=== PATIENT | male | born 1960 | race Caucasian/White ===

== ENCOUNTER 2018-01-22 21:27 | Emergency (ER) | payer SELFPAY ==
[2018-01-22] MEDS ORDERED: CLINDAMYCIN 150 MG CAP PO ONE (21:54)
--- NOTE | 2018-01-22 21:54 | Emergency Department Record ---
History of Present Illness - General Chief complaint: Rash Stated complaint: STAFF INFECTION BOTH ARMS Time Seen by Provider: 01/22/18 21:52 Source: Patient Mode of Arrival: Ambulatory Limitations: No limitations - History of Present Illness Initial comments: 57 yo male presents to ED for evaluation of a weeping rash to the left upper extremity. Patient reports that he was treated for cellulitis 1 months ago with Bactrim and ? Keflex for 10 days, symptoms significantly improved, but returned over the past 24 hours. Patient denies fevers, chills, or recent illness. Patient denies health problems at his baseline. MD complaint: Rash Onset/Timin -: Month(s) Hx Tetanus Toxoid Vaccination: Yes Year of Tetanus Vaccination: 2013 Location: [facility] [place] Severity: Moderate Quality: Other Improves with: Medication Context: None Associated symptoms: Denies other symptoms Treatments Prior to Arrival: None - Related Data Previous Rx's Medication Instructions Recorded Clindamycin HCl 300 mg PO QID #40 capsule 01/22/18 Allergies Allergy/AdvReac Type Severity Reaction Status Date / Time Penicillins Allergy Unknown unknow Unverified 12/18/17 13:12 Travel Screening - Travel/Exposure Within Last 30 Days Have you traveled within the last 30 days?: No - Travel Symptoms Symptom Screening: Rash Review of Systems Constitutional: Denies: Chills, Fever, Malaise, Night sweats Eyes: Denies: Eye discharge, Eye pain ENT: Denies: Congestion, Ear pain, Epistaxis Respiratory: Denies: Cough, Dyspnea Cardiovascular: Denies: Chest pain, Dyspnea on exertion Endocrine: Denies: Fatigue, Heat or cold intolerance Gastrointestinal: Denies: Abdominal pain, Constipation, Vomiting Genitourinary: Denies: Incontinence, Retention Musculoskeletal: Denies: Arthralgia, Back pain, Gout, Joint swelling Skin: Reports: Rash. Denies: Bruising, Change in color Neurological: Denies: Abnormal gait, Confusion, Headache, Seizure Psychiatric: Denies: Anxiety Hematological/Lymphatic: Denies: Anemia, Blood Clots Past Medical History - SOCIAL HISTORY Smoking Status: Never smoker Alcohol Use: Rare Drug Use: Heavy Drug Use Detail:: Marijuana - RESPIRATORY Hx Respiratory Disorders: No - CARDIOVASCULAR Hx Cardio Disorders: No - NEURO Hx Neuro Disorders: No - GI Hx GI Disorders: No - Hx Genitourinary Disorders: No - ENDOCRINE Hx Endocrine Disorders: No - MUSCULOSKELETAL Hx Musculoskeletal Disorders: No - PSYCH Hx Psych Problems: No - HEMATOLOGY/ONCOLOGY Hx Hematology/Oncology Disorders: No Family Medical History Any Significant Family History?: No Family Hx Comment (NOT TO BE USED IN PLACE OF ITEMS BELOW): denies Physical Exam - General General Appearance: Alert, Oriented x3, Cooperative, Mild distress Limitations: No limitations - Head Head exam: Atraumatic, Normocephalic, Normal inspection Head exam detail: negative: Abrasion, Contusion, Barker's sign, General tenderness, Hematoma, Laceration - Eye Eye exam: Normal appearance. negative: Conjunctival injection, Periorbital swelling, Periorbital tenderness, Scleral icterus - ENT Ear exam: negative: Auricular hematoma, Auricular trauma Nasal Exam: negative: Active bleeding, Discharge, Dried blood, Foreign body Mouth exam: negative: Drooling, Laceration, Muffled voice, Tongue elevation - Neck Neck exam: Normal inspection. negative: Meningismus, Tenderness - Respiratory Respiratory exam: Normal lung sounds bilaterally. negative: Rales, Respiratory distress, Rhonchi, Stridor - Cardiovascular Cardiovascular Exam: Regular rate, Normal rhythm, Normal heart sounds Peripheral Pulses: 3+: Radial (L) - GI/Abdominal GI/Abdominal exam: Soft. negative: Rebound, Rigid, Tenderness - Rectal Rectal exam: Deferred - exam: Deferred - Extremities Extremities exam: Other (Erythematous rash to the medial upper arm extending past the anticubital region to the mid-foream volarly, honey-colored crust is present to the area as well. No crepitation on examination.). negative: Calf tenderness, Pedal edema - Back Back exam: Denies: CVA tenderness (R), CVA tenderness (L) - Neurological Neurological exam: Alert, Normal gait, Oriented X3 - Psychiatric Psychiatric exam: Normal affect, Normal mood - Skin Skin exam: Normal color. negative: Abrasion Type of lesion: negative: abrasion Course Vital Signs 01/22/18 21:40 Temperature 97.8 F Pulse Rate [ 67 Pulse Ox Probe] Respiratory 20 Rate Blood Pressure 153/99 [Left Arm] Pulse Ox 96 - Reevaluation(s) Reevaluation #1: 01/22/18 22:00 History and examination appears c/w impetigo/strep to the left upper extremity. Will initiate treatment with Clindamycin with instructions to return if symptoms worsen, but also be reassessed by Dr. Sanchez in 3-5 days to ensure that his symptoms are improving. Patient agrees with the plan of care as discussed. Disposition Disposition: Discharge Clinical Impression: Cellulitis of upper extremity Qualifiers: Laterality: left Qualified Code(s): L03.114 - Cellulitis of left upper limb Disposition: Home, Self-Care Condition: (2) Stable Instructions: Impetigo (ED), Cellulitis (ED) Additional Instructions: Return to ED if your symptoms worsen or if you have any concerns. Clindamycin as directed. Follow-up with Dr. Sanchez in 3-5 days as directed. Prescriptions: Clindamycin HCl 300 mg PO QID #40 capsule Forms: Patient Portal Access Time of Disposition: 21:54 Quality - Quality Measures Quality Measures: N/A - Blood Pressure Screening Does Patient Have Any of the Following: No Blood Pressure Classification: Hypertensive Reading Systolic Measurement: 153 Diastolic Measurement: 99 Screening for High Blood Pressure: < First Hypertensive BP, F/U Documented > [ G8950] First Hypertensive Follow-up Interventions: Referral to alternative/primary care provider.
== END 2018-01-22 22:00 | disposition home or self-care (01) ==
LOC: ER 21:27
DX: L03.114 Cellulitis of left upper limb (principal)
CPT/HCPCS: 99282

== ENCOUNTER 2018-01-24 02:11 | Observation (INO) | payer SELFPAY ==
[2018-01-24] MEDS ORDERED: CLINDAMYCIN 600MG/50ML PREMIX 600 MG/50 ML BAG IVPB ONE (02:26)
--- NOTE | 2018-01-24 02:33 | Emergency Department Record ---
History of Present Illness - General Chief complaint: Rash Stated complaint: RASH Time Seen by Provider: 01/24/18 02:26 Source: Patient Mode of Arrival: Ambulatory Limitations: No limitations - History of Present Illness Initial comments: 57 yo male returns to ED for evaluation of worsening erythema and weeping of the LUE, worsening of symptoms to the right UE. Patient reports that he applied hydrogen peroxide to the affected area. Patient reports that his symptoms had initially improved but then worsened this evening increasing in both size and edema. Patient denies fevers, chills, or recent illness. MD complaint: Rash Onset/Timin -: Minutes(s) Hx Tetanus Toxoid Vaccination: Yes Year of Tetanus Vaccination: 2013 Location: [facility] Severity scale (1-10): 6 Quality: Burning Consistency: Constant Improves with: Topical medication Worsens with: None Context: None Associated symptoms: Itching Treatments Prior to Arrival: OTC topical medication - Related Data Previous Rx's Medication Instructions Recorded Clindamycin HCl 300 mg PO QID #40 capsule 01/22/18 Allergies Allergy/AdvReac Type Severity Reaction Status Date / Time Penicillins Allergy Unknown unknow Verified 01/24/18 02:13 Travel Screening - Travel/Exposure Within Last 30 Days Have you traveled within the last 30 days?: No - Travel Symptoms Symptom Screening: None Review of Systems Constitutional: Denies: Chills, Fever, Malaise, Night sweats Eyes: Denies: Eye discharge, Eye pain ENT: Denies: Congestion, Ear pain, Epistaxis Respiratory: Denies: Cough, Dyspnea Cardiovascular: Denies: Chest pain, Dyspnea on exertion Endocrine: Denies: Fatigue, Heat or cold intolerance Gastrointestinal: Denies: Abdominal pain, Nausea, Vomiting Genitourinary: Denies: Incontinence, Retention Musculoskeletal: Denies: Arthralgia, Back pain, Gout, Joint swelling Skin: Reports: Pruritus, Rash. Denies: Bruising, Change in color Neurological: Denies: Confusion, Headache, Seizure Psychiatric: Denies: Anxiety Hematological/Lymphatic: Denies: Anemia, Blood Clots Past Medical History - SOCIAL HISTORY Smoking Status: Never smoker - RESPIRATORY Hx Respiratory Disorders: No - CARDIOVASCULAR Hx Cardio Disorders: No - NEURO Hx Neuro Disorders: No - GI Hx GI Disorders: No - Hx Genitourinary Disorders: No - ENDOCRINE Hx Endocrine Disorders: No - MUSCULOSKELETAL Hx Musculoskeletal Disorders: No - PSYCH Hx Psych Problems: No - HEMATOLOGY/ONCOLOGY Hx Hematology/Oncology Disorders: No Family Medical History Any Significant Family History?: No Family Hx Comment (NOT TO BE USED IN PLACE OF ITEMS BELOW): unknown hx Physical Exam - General General Appearance: Alert, Oriented x3, Cooperative, Mild distress Limitations: No limitations - Head Head exam: Atraumatic, Normocephalic, Normal inspection Head exam detail: negative: Abrasion, Contusion, Barker's sign, General tenderness, Hematoma, Laceration - Eye Eye exam: Normal appearance. negative: Conjunctival injection, Periorbital swelling, Periorbital tenderness, Scleral icterus - ENT Ear exam: negative: Auricular hematoma, Auricular trauma Nasal Exam: negative: Active bleeding, Discharge, Dried blood, Foreign body Mouth exam: negative: Drooling, Laceration, Muffled voice, Tongue elevation - Neck Neck exam: Normal inspection. negative: Meningismus, Tenderness - Respiratory Respiratory exam: Normal lung sounds bilaterally. negative: Rales, Respiratory distress, Rhonchi, Stridor - Cardiovascular Cardiovascular Exam: Regular rate, Normal rhythm, Normal heart sounds - GI/Abdominal GI/Abdominal exam: Soft. negative: Rebound, Rigid, Tenderness - Rectal Rectal exam: Deferred - exam: Deferred - Extremities Extremities exam: Other (Confluent erythema extending from the mid-upper arm medially to the mid-forearm with weeping fluid present, patient removed the previlsy seen honey-colored crust resulting in increased drainage from extremity. Patient also has an area now to the right anticubital region with honey-colored crust present.). negative: Calf tenderness, Pedal edema, Tenderness - Back Back exam: Denies: CVA tenderness (R), CVA tenderness (L) - Neurological Neurological exam: Alert, Normal gait, Oriented X3 - Psychiatric Psychiatric exam: Normal affect, Normal mood - Skin Skin exam: Erythema. negative: Abrasion Type of lesion: Rash Distribution of rash: [place] Description of rash: Confluent Course Vital Signs 01/24/18 02:15 Temperature 97.5 F L Pulse Rate [ 90 Pulse Ox Probe] Respiratory 20 Rate Blood Pressure 149/113 [Right Arm] Pulse Ox 99 - Reevaluation(s) Reevaluation #1: 01/24/18 02:33 Laboratory studies were ordered, Clindamycin and Vancomycin ordered IV. No crepitation is present, compartments are soft on examination. Will obtain radiograph to exclude soft-tissue gas and plan for admission. Reevaluation #2: 01/24/18 03:00 Laboratory studies were reviewed and appear grossly unremarkable for an acute process. Reevaluation #3: 01/24/18 03:23 Left elbow: Negative for fracture or dislocation Non-specific soft tissue swelling ? intra-articular loose bodies Patient was updated on all results and agrees with the plan for admission for further evaluation. Medical Decision Making - Lab Data Result diagrams: 01/24/18 02:30 01/24/18 02:30 Disposition Disposition: Admit Clinical Impression: Dermatitis, Impetigo Disposition: Still a Patient at [facility] Decision to Admit: Admit from ER Decision to Admit Date: 01/24/18 Decision to Admit Time: 02:52 Condition: (2) Stable Forms: Patient Portal Access Time of Disposition: 02:35 Quality - Quality Measures Quality Measures: N/A - Blood Pressure Screening Does Patient Have Any of the Following: No Blood Pressure Classification: Hypertensive Reading Systolic Measurement: 149 Diastolic Measurement: 113 Screening for High Blood Pressure: < First Hypertensive BP, F/U Documented > [ G8950] First Hypertensive Follow-up Interventions: Referral to alternative/primary care provider.
[2018-01-24 02:44] LABS: BASO % 0.6 % (0-6); GRAN % 66.3 % (47-80); HEMATOCRIT 48.7 % (42.0-52.0); HEMOGLOBIN 16.9 gm/dl (14.0-18.0); LYMPH % 19.8 % (16-45); MEAN CORPUSCULAR HEMOGLOBIN 30.2 pg (27-33); MEAN CORPUSCULAR HGB CONC 34.7 g/dl (32-36); MEAN PLATELET VOLUME 10.6 fl (7.4-10.4); MONO % 8.3 % (0-9); PLATELET COUNT 248 K/uL (130-400); RED CELL DISTRIBUTION WIDTH 13.6 % (11.5-14.5); WHITE BLOOD COUNT W/O DIFF 8.7 K/uL (4.2-12.2)
[2018-01-24] MEDS ORDERED: VANCOMYCIN HCL 2,000 MG in 0.9 % SODIUM CHLORIDE 250ML 250 ML IVPB ONE (02:49)
[2018-01-24 02:53] LABS: BLOOD UREA NITROGEN 16 mg/dL (6-20); CREATININE 0.8 mg/dL (0.7-1.2); EST GLOMERULAR FILTRATION RATE > 60 mL/min
[2018-01-24 02:54] LABS: TOTAL PROTEIN 7.5 g/dL (6.6-8.7)
[2018-01-24 02:56] LABS: GLUCOSE,RANDOM 116 mg/dL (74-109)
[2018-01-24 02:58] LABS: ALB/GLOB RATIO 1.6 (1.1-1.8); ALBUMIN 4.6 g/dL (4.0-5.0); ALKALINE PHOSPHATASE 91 U/L (40-129); ALT/SGPT 21 U/L (<41); AST/SGOT 20 U/L (10.0-50.0); C-REACTIVE PROTEIN 0.43 mg/dL (<0.5)
[2018-01-24] MEDS ORDERED: VANCOMYCIN HCL 2,000 MG in 0.9 % SODIUM CHLORIDE 250ML 250 ML IVPB SCH (03:46)
[2018-01-24 03:51] LABS: ERYTHROCYTE SEDIMENTATION RATE 2 mm/hr (0-20)
[2018-01-24] MEDS ORDERED: HYDROCORTISONE 1% CREAM 28.35 GM TUBE TOP PRN (08:04)
[2018-01-24] MEDS: METHYLPREDNISOLONE PF 125MG/VIAL IVP ONE ×3 (08:38→16:45)
[2018-01-24] MEDS: DIPHENHYDRAMINE HCL 25 MG CAPSULE PO PRN ×2 (08:38→16:34)
[2018-01-24] MEDS ORDERED: CLINDAMYCIN 600MG/50ML PREMIX 600 MG/50 ML BAG IVPB SCH (10:30)
[2018-01-24] MEDS ORDERED: VANCOMYCIN HCL 2,000 MG in 0.9 % SODIUM CHLORIDE 500ML 500 ML IVPB SCH (11:00)
--- NOTE | 2018-01-24 11:08 | RADIOLOGY REPORT ---
EXAM: LEFT ELBOW HISTORY: WOUND DRAINAGE, ERYTHEMA, POSSIBLE SOFT TISSUE AIR. TECHNIQUE: Three views of the left elbow were obtained. A preliminary report was provided by [facility]. Comparison: None. FINDINGS: There is some soft tissue swelling along the radial aspect of the elbow in particular. On the lateral views there is a relative soft tissue defect along the anterior aspect of the antecubital fossa which may just be artifactual related to some external binding, but clinical correlation is suggested. There is mild spurring about the elbow consistent with mild degenerative arthritis and there is questionably at least one small calcific density centrally in the elbow which could be a small osteocartilaginous loose body. No definite displacement of the fat pads about the distal humerus seen to suggest a joint effusion, however. No fracture or destructive lesion seen. No definite air identified in the soft tissues themselves. IMPRESSION: 1. SOFT TISSUE SWELLING PARTICULARLY ALONG THE RADIAL ASPECT OF THE ELBOW. RELATIVE SOFT TISSUE DEFECT ANTERIORLY IN THE SUPERFICIAL ASPECT OF THE ANTECUBITAL FOSSA IS QUESTIONABLY JUST AN ARTIFACT RELATED TO SOME OVERLYING BINDING, BUT CLINICAL CORRELATION TO A LARGE ULCERATED SOFT TISSUE DEFECT IN THIS LOCATION IS SUGGESTED. 2. SOME MILD DEGENERATIVE CHANGES AT THE ELBOW WITH POSSIBLY A SMALL OSTEOCARTILAGINOUS LOOSE BODY. JOB NUMBER: [id number] [facility]
[2018-01-24] MEDS ORDERED: METHYLPREDNISOLONE SOD 40MG/VIAL IVP ONE (15:14)
--- NOTE | 2018-01-24 15:22 | Discharge Note ---
VTE H&P Assessment - Risk for VTE Risk for VTE: Yes Risk Level: Moderate Risk Assessment Date: 01/24/18 Risk Assessment Time: 08:00 VTE Orders Placed or Will Be Placed: Yes Discharge Medications - Discharge Medications Prescriptions: Prednisone [Prednisone 10Mg] 10 mg PO ASDIR #30 tab Home Medications: Ambulatory Orders Clindamycin HCl 300 mg PO QID #40 capsule 01/22/18 [Last Taken 01/23/18] Prednisone [Prednisone 10Mg] 10 mg PO ASDIR #30 tab 01/24/18 [Last Taken Unknown ] Discharge Note - Date Date of Discharge Note: 01/24/18 Disposition: Home, Self-Care Condition: (1) Good Additional Instructions: follow up with Dr. Sanchez on monday 9:00am in the office, Please tell him my office is in the new building behind the hospital. wash arms with soap and water once or twice a day cover with guaze if wheeping use hydrocrtisone cream twice a day please dispense the tube he is using in the hospital use eurcin crean or jasvir mosturizing cream hypoallergic PRN Forms: Patient Portal Access Activity at Discharge: Increase Activity as Tolerated
[2018-01-24] MEDS ORDERED: SODIUM CHLORIDE 0.9% IVPB SCH (21:00)
[2018-01-24] MEDS ORDERED: VANCOMYCIN HCL IVPB SCH (21:00)
--- NOTE | 2018-01-26 08:30 | History and Physical Report ---
DATE: 01/24/2018 at 9 a.m. CHIEF COMPLAINT: Rash bilaterally. HISTORY OF PRESENT ILLNESS: This 57-year-old male presented to the emergency department with rash on both arms, worse on the left than the right, oozing. Started about 4 months ago is what the patient said but in the last 2 weeks it has been much worse. He was seen at the [facility] approximately a month ago, started on Bactrim and Keflex for 10 days. He improved but it did not go totally away. He came into the ER on 01/22/2018, diagnosed with cellulitis, started on clindamycin. He got worse. He came back to the ER last night. Started on vancomycin and clindamycin IV, admitted to the hospital for IV antibiotics. The rash on the left arm is oozing, red, and acute on chronic inflammation. The right arm looks chronic rash of possibly some immunologic dermatitis. The patient was admitted during the night by Dr. Katz through the emergency department. PAST MEDICAL HISTORY: Negative. PAST SURGICAL HISTORY: T&A and knee scope. MEDICATIONS: None except the clindamycin that was started in the emergency department on 01/22/2018 at 300 mg q.i.d. ALLERGIES: PENICILLIN. FAMILY/PSYCHOSOCIAL HISTORY: Family history unremarkable. Occasional alcohol use. Heavy marijuana use. Never uses cigarettes. REVIEW OF SYSTEMS: HEENT: No upper respiratory infection symptoms, cough, cold, or congestion. Cardiovascular: No chest pain, palpitations, or arrhythmia. Respiratory: No cough, cold, or congestion. Gastrointestinal: No nausea, vomiting, diarrhea, black stools, or bloody stools. No appetite loss. He is eating appropriately. Genitourinary: No dysuria, hematuria, frequency, or burning on urination. Musculoskeletal: No joint or bone abnormalities. Neurological: No CVA, paralysis, or paresthesias. Endocrine: No diabetes or thyroid disease. Integument: See Chief Complaint. He has bilateral redness of both axillary areas of the arms. The left is way worse than the right, oozing, it is very itchy, he is constantly itching when I was talking to him. PHYSICAL EXAMINATION: VITALS: Height 6 feet 2 inches, weight 235 pounds stated, 245 pounds on a standing scale. Temperature 98.1, pulse 62, blood pressure 137/80, respiratory rate 18, pulse ox 97% on room air. HEENT: Pupils are equal, round, and reactive to light and accommodation. Extraocular muscles are intact. Throat is clear. Nose is clear. Tympanic membranes are murry. NECK: Supple. No jugular venous distention. No hepatojugular reflux. No carotid bruits. Thyroid is smooth. CARDIOVASCULAR: Regular rate and rhythm without murmurs, clicks, rubs, or gallops. RESPIRATORY: Clear to auscultation and percussion. ABDOMEN: Soft, nontender. No hepatosplenomegaly, no masses, no tenderness. Bowel sounds are active. No bruits. EXTREMITIES: There is rash on both arms. Right is less than the left. Oozing on the left, axillary area about 5 x 4 cm. BREASTS: Normal male breasts. RECTAL: Exam deferred. GENITALIA: Deferred. NEUROLOGIC: Cranial nerves II-XII intact. No gross defects. Sensation normal, strength normal. Deep tendon reflexes equal bilaterally with Babinski negative. MENTAL STATUS: Alert and oriented x3. IMPRESSION: 1. Cellulitis of both arms. 2. Possible allergic dermatitis versus psoriasis with inflammation. PLAN: IV Solu-Medrol 125. Continue the antibiotics. Further evaluation. MTDD
--- NOTE | 2018-01-29 09:34 | Discharge Summary ---
DATE: 01/24/2018 This is an observation patient. DISCHARGE DIAGNOSES: 1. Cellulitis. 2. Acute allergic dermatitis. 3. Possible psoriasis exacerbation. ATTENDING PHYSICIAN: Donavan Sanchez DO REASON FOR ADMISSION: This 57-year-old male developed a rash on both arms that had been present for about 4 months, much worse in the last week. Actually, a month ago he was seen at [facility] and started on Bactrim and Keflex. It almost cleared up but then it came back. He was seen twice in the emergency department 48 hours ago. It was oozing, red, and inflamed. He came in and was started on oral clindamycin. He came back last night. It was much worse. He was admitted to the hospital for IV antibiotics of clindamycin and vancomycin by Dr. Katz. When I saw it this morning, it looks more inflammatory, allergic, contact dermatitis type rather than infectious. He had no fever, no white count. He did not have any symptoms of infection. He was eating and walking around the room without any discomfort. Gave him IV Solu-Medrol 125 and the rash looked quite a bit better in 6 hours. At this point I feel it is safe to discharge him home with oral antibiotics and oral prednisone. SIGNIFICANT FINDINGS: Elbow x-ray showing no gas in the tissue. No fracture seen. WBC 8700, hemoglobin 16.9. Potassium 4.2, BUN 16, creatinine 0.8. Vancomycin was started in the ER. C-reactive protein is 0.43. THERAPY PROVIDED: He was given IV vancomycin, IV clindamycin, and one dose of IV Solu-Medrol which seemed to be the thing that made him more comfortable. The oozing has slowed down dramatically. We gave him a second dose of IV Solu-Medrol 60 mg prior to discharge and sent him home with oral prednisone. Continue his clindamycin pills. Close followup in the office with me on Monday in 5 days. CONDITION ON DISCHARGE: Improved. DISCHARGE INSTRUCTIONS: Follow up with Dr. Sanchez on Monday at 9 a.m. Continue clindamycin 300 mg 4 times a day for 10 days. He already has this at home. Prednisone 10 mg pills, 4 pills a day for 3 days, 3 pills a day for 3 days, 2 pills a day for 3 days, 1 pill a day for 3 days. Wash the wound twice a day with soap and water only. Use 1% hydrocortisone cream twice a day and in between he can use a moisturizing cream of Brenda or Eucerin, not hypoallergenic moisturizing cream. MTDD
== END 2018-01-24 16:55 | disposition home or self-care (01) ==
LOC: ER 02:11 → MEDSURG 03:35
PROVIDERS: ADMIT Emergency Medicine; ATTEND Emergency Medicine
DX: L03.114 Cellulitis of left upper limb (principal); L03.113 Cellulitis of right upper limb; L01.00 Impetigo, unspecified; L30.9 Dermatitis, unspecified
CPT/HCPCS: 99285 ×2; 96365; 96366; 85025; 85651; 86140; 80053; 73080; G0378; J3370; 99219; J2920; J2930; J7040; J7050